=== PATIENT | female | born 1990 | race Caucasian/White ===

== ENCOUNTER → 2020-08-10 14:54 | Outpatient (CLI) | payer OTHER, SELFPAY ==
[2020-08-12 07:30] LABS: HIV Screen 4th Generation wRfx Non Reactive (Non Reactive)
[2020-08-12 09:06] LABS: HSV 1 IgG, Type Spec <0.91 index (0.00-0.90); HSV 2 IgG, Type Spec <0.91 index (0.00-0.90)
[2020-08-12 10:26] LABS: Hep A Ab, IgM Negative (Negative); Hepatitis B Core Antibody IgM Negative (Negative); Hepatitis B Surface Antigen Negative (Negative); Hepatitis C Antibody <0.1 s/co ratio (0.0-0.9)
[2020-08-12 12:33] LABS: Rapid Plasma Reagin Ab Titer Non Reactive (NonRea<1:1)
== END ==
PROVIDERS: Visit Provider Nurse Practitioner Obstetrics & Gynecology
DX: Z01.419 Encounter for gynecological examination (general) (routine) without abnormal findings (principal); Z72.51 High risk heterosexual behavior
CPT/HCPCS: 36415; 80074; 86592; 86695; 86703; 86790; G0432

== ENCOUNTER → 2022-04-24 10:34 | Outpatient (CLI) | payer OTHER, SELFPAY ==
--- NOTE | 2022-04-24 10:34 | US_ITS ---
FINAL REPORT CLINICAL HISTORY: abnormal uterine bleeding FINDINGS: Transvaginal sonographic images of the pelvis were obtained. The uterus measures 8.9 x 5.2 x 4.4 cm. The endometrium measures 13 mm, which is at the upper limit of normal. There is a questionable small subserosal uterine fibroid. The right ovary measures 4.4 cm in length and left ovary measures 3.8 cm in length. Normal blood flow seen to the ovaries. There are multiple cysts and follicles bilaterally consistent with PCOS. There is no evidence of free fluid. IMPRESSION: Questionable small subserosal uterine fibroid. Multiple cysts/follicles in both ovaries consistent with PCOS. 13 mm endometrium measures at the upper limits of normal. Reviewed, Interpreted and Dictated by Suraj Casas III, MD Transcribed by Arminda Quijano Authenticated and [facility]
== END ==
PROVIDERS: PCP Pediatrics; Visit Provider Obstetrics & Gynecology
DX: N93.8 Other specified abnormal uterine and vaginal bleeding (principal)
CPT/HCPCS: 76830

== ENCOUNTER → 2022-06-29 12:47 | Outpatient (CLI) | payer OTHER, SELFPAY ==
[2022-06-29 14:42] LABS: Basophils % 0.5 % (0.1-2.0); Eosinophils # 0.1 K/mm3 (0.0-0.4); Eosinophils % 1.4 % (0.1-12.0); Hematocrit 39.5 % (37.0-47.0); Hemoglobin 13.2 g/dL (12.2-16.2); Lymphocytes % 28.7 % (10-50); Mean Corpuscular HGB Conc 33.5 g/dL (31.8-35.4); Mean Corpuscular Hemoglobin 30.3 pg (27.0-31.2); Mean Corpuscular Volume 90.6 fl (81-99); Mean Platelet Volume 8.2 fl (7.4-10.4); Monocytes # 0.4 K/mm3 (0.1-1.0); Neutrophils # 4.5 K/mm3 (1.8-7.8); Neutrophils % 63.5 % (37.0-80.0); Platelet Count 292 K/mm3 (142-424); Red Blood Count 4.36 M/mm3 (4.20-5.40); Red Cell Distribution Width 12.9 % (11.5-17.5); White Blood Count 7.1 K/mm3 (4.8-10.8)
[2022-06-29 15:29] LABS: Alanine Aminotransferase 23 U/L (12-78); Albumin Level 4.1 g/dl (3.5-5.0); Albumin/Globulin Ratio 1.6 (1.1-1.8); Alkaline Phosphatase 53 U/L (38-126); Anion Gap 17.6 mEq/L (5-15); Aspartate Amino Transferase 25 U/L (14-36); Blood Urea Nitrogen 12 mg/dl (7-17); Calcium 8.8 mg/dl (8.4-10.2); Carbon Dioxide 26 mmol/L (22.0-30.0); Chloride 101 mmol/L (98-107); Estimated Glomerular Filt Rate 84 ml/min (>60); GFR (African American) 101 ML/MIN (>60); Globulin 2.5 g/dL (1.3-3.2); Glucose 77 mg/dl (74-100); Potassium 3.6 mmoL/L (3.5-5.1); Sodium 141 mmol/L (136-145); Total Protein,Serum 6.6 g/dl (6.3-8.2)
[2022-06-29 15:31] LABS: Bilirubin,Total < 0.1 mg/dl (0.2-1.3)
[2022-06-29 15:45] LABS: HCG,Quantitative < 2 mIU/ml (0-5.42)
== END ==
PROVIDERS: PCP Pediatrics; Visit Provider Obstetrics & Gynecology
DX: N93.9 Abnormal uterine and vaginal bleeding, unspecified (principal); Z01.812 Encounter for preprocedural laboratory examination
CPT/HCPCS: 36415; 80053; 84702; 85025

== ENCOUNTER 2022-07-05 05:58 | Day surgery (SDC) | payer OTHER, SELFPAY ==
[2022-07-03 13:09] VITALS: BMI 40.7
[2022-07-05] VITALS (10 sets, daily range): BP systolic 116–137; BP diastolic 76–97; PULSE 61–77; RESP 16–19; TEMP 36.1–43; O2SAT 94–98
--- NOTE | 2022-07-05 07:12 | P.PN_ITS ---
[facility] Disclaimer: The information contained in this section may have been updated after the patient was seen, as this information can be updated by other users. Medical History Abnormal uterine bleeding delivery delivered Fibroid, uterine Surgical History H/O tubal ligation History of arthroplasty of right shoulder Family History Other Family history of acute congestive heart failure Family history of diabetes mellitus type II Social History Smoking Status: Current every day smoker smoking status stop date: stopped 01/2022 alcohol intake: current substance use type: denies use current occupational status: employed Travel in the last 8 weeks: None household members: spouse and family housing: house [facility] Anesthesia Checklist Patient Identification Patient Identification: Arm Band and Family Structural Data Admitted From: Home Planned Operative Procedure/s: D & C. Hysteroscopy. Myosu re. Novasure. Insertion of IUD. Consent for Planned Operative Procedure(s) Verified: Yes Verified Documents: Surgical Consent and History and Physical NPO Status Verified Time NPO: 00:00 Additional verifications Patient : No Anesthesia Reactions: No Hx Blood Transfusions: No Blood Transfusion Reaction: No Cephalosporin Allergy: No Previous Colonoscopy: No Cardiovascular Assessment Peripheral Edema: No Airway Assessment C-Spine Mobility Assessed: Yes TMJ Mobility Assessed: Yes Dentition: Good Dentition Neurological Assessment Level of Consciousness: Awake, Alert, Appropriate and Follows Commands Hx Seizures: No Numbness or tingling in extremities: No Anesthesia Plan Anesthesia Risk discussed: Yes ASA Class: II Anesthesia Type: General
--- NOTE | 2022-07-05 08:21 | P.PNANES_ITS ---
[facility] Anesthesia Record Part I Anesthesia Record I Intake, IV Amount: 650 Estimated blood loss (mL): 5 Urine output (mL): 50 Blood Products used (#): none Blood Pressure: 126/77 SaO2: 94 Pulse Rate: 77 Respiratory Rate: 18 Temperature: 97.2 F Patient is:: Drowsy and Stable Stable to PACU at:: 08:18
--- NOTE | 2022-07-05 08:23 | EXP.OP.NOTE ---
Date of procedure: 07/05/22 Pre-op Diagnosis:: 1. Abnormal uterine bleeding 2. Uterine fibroid Post-op Diagnosis:: 1. Abnormal uterine bleeding 2. Uterine fibroid Procedure performed:: 1. Hysteroscopy, dilation and curettage 2. Insertion of Mirena IUD Surgeon:: Kristel Duncan DO Fire Assistant(s):: N/a RETORT PRE COOKER:: Other Anesthesia: GETA Estimated blood loss (mL): 5 Clinical Note:: Ms Mirna Espino is a 31 yo P2002 who presents to [facility] for scheduled surgery. She has history of monthly periods lasting 7 days with heavy flow. However, this month she has been bleeding for the past 4.5 weeks. Flow alternates between light and heavy. TSH drawn at an outside lab 12/2021 was 0.828, within normal limits. She has tried OCPs in the past and it made her bleeding worse. Hx of tubal ligation. She has also tried Mirena IUD in the past and did really well with it. She had IUD removed about 8 years ago. Pelvic ultrasound demonstrated uterus measuring 8.9 x 5.2 x 4.4 cm. The endometrium measures 13 mm, which is at the upper limit of normal.? There is a questionable small subserosal uterine fibroid.? Operative findings:: 1. On bimanual exam, uterus midline, anteverted, normal size and shape. No adnexal masses palpated 2. On hysteroscopic exam, bilateral tubal ostia easily visualized. Small amount of endometrial tissue present. No masses or polyps present Operative note:: Risks, benefits and alternatives were discussed with the patient. Risks include but are not limited to bleeding, infection, uterine perforation and VTE. Patient voiced understanding and agreed to proceed. She was wheeled back to the operating room and placed under MAC without difficulty. She was placed in dorsal lithotomy position and prepped and draped in the normal sterile fashion. Straight catheter was used to drain the bladder. A bimanual exam was performed. A weighted Auvard was placed in the vaginal vault. Single tooth tenaculum was placed on anterior lip of the cervix. Uterus sounded to 10. Sequential Alec dilators were used to dilate the cervical os. Hysteroscope was tested inserted through the cervix without difficulty. Endometrial cavity was evaluated. See findings above. Pictures were taken. Hysteroscope was removed. At this time, a medium size sharp curette was inserted through the cervix into the uterine cavity and endometrium was curetted with a systematic back and forth movement in a 360 degree manner. Endometrial curettings will be sent to pathology for review. Next, Mirena IUD was inserted in the uterine cavity per protocol without difficulty. Strings were trimmed approximately 2.5 cm from external cervical os. Instruments were removed from the vagina. Tenaculum site was noted to oozing. 2-0 Chromic suture was used to suture ligate the bleeding. Hemostasis was noted. Patient was awaken from anesthesia without difficulty. She was transported to recovery room in stable condition. Patient will be discharged home when awake and ambulating. She was given postop instructions as well as instructions to follow-up in the office in 2 weeks at which time pathology will be reviewed. Condition: stable Disposition: same day Specimens:: Endometrial curettings Complications:: None
--- NOTE | 2022-07-05 10:39 | P.PNANES_ITS ---
[facility] Anesthesia Record Part II Anesthesia Record Part II Discharge Time: 08:48 Destination: Surgical Day Care (OP Surgery) PACU nurse assessment reviewed?: Yes Patient Condition:: Good Anesthesia Complications:: None Swallowing reflex intact?: Yes Cyanosis?: No Blood Pressure: 124/77 Pulse Rate: 61 Temperature: 97 F Mental Status: Alert & Oriented Pain level:: 3 Nausea and/or vomitting:: None Intake, IV Amount: 0
== END 2022-07-05 09:20 | disposition home or self-care (01) ==
PROVIDERS: PCP Pediatrics; Visit Provider Obstetrics & Gynecology
PROC: (CPT 58558; principal; 2022-07-05 07:30)
DX: N84.0 Polyp of corpus uteri (principal); N93.9 Abnormal uterine and vaginal bleeding, unspecified; Z79.899 Other long term (current) drug therapy
CPT/HCPCS: 58558; 58300; J2405; S4989

== ENCOUNTER 2023-12-12 10:28 | Outpatient (CLI) | payer OTHER, SELFPAY ==
[2023-12-12 10:37] LABS: Microscopic, Urine URINE MICROSCOPIC (MICROSCOPIC)
[2023-12-12 11:04] LABS: Appearance,Urine CLEAR (Clear); Bilirubin,Urine Negative (Negative); Blood, Urine Negative (Negative); Color,Urine YELLOW (Yellow); Glucose,Urine (UA) Negative (Negative); Ketones,Urine Negative (Negative); Leukocyte Esterase,Urine Negative (Negative); Nitrate,Urine Negative (Negative); PH,Urine 7.5 (5.0-8.5); Protein,Urine Negative (Negative); Urobilinogen,Urine 0.2 EU/dl (0.2)
[2023-12-12 11:05] LABS: Basophils # 0.1 K/mm3 (0-0.2); Eosinophils # 0.1 K/mm3 (0.0-0.4); Eosinophils % 1.6 % (0.1-12.0); Hematocrit 40.3 % (37.0-47.0); Hemoglobin 13.6 g/dL (12.2-16.2); Lymphocytes # 1.9 K/mm3 (0.7-4.5); Lymphocytes % 28.9 % (10-50); Mean Corpuscular HGB Conc 33.9 g/dL (31.8-35.4); Mean Corpuscular Hemoglobin 29.1 pg (27.0-31.2); Mean Corpuscular Volume 85.9 fl (81-99); Mean Platelet Volume 7.3 fl (7.4-10.4); Monocytes # 0.5 K/mm3 (0.1-1.0); Monocytes % 7.7 % (1.7-9.3); Neutrophils % 60.7 % (37.0-80.0); Platelet Count 273 K/mm3 (142-424); Red Blood Count 4.69 M/mm3 (4.20-5.40); Red Cell Distribution Width 13.4 % (11.5-17.5); White Blood Count 6.6 K/mm3 (4.8-10.8)
[2023-12-12 11:19] LABS: D-Dimer 0.51 ug/mL (0.0-0.5)
[2023-12-12 11:31] LABS: Erythrocyte Sedimentation Rate 19 mm/hr (0-20)
[2023-12-12 12:05] LABS: Alanine Aminotransferase 78 U/L (12-78); Albumin/Globulin Ratio 1.4 (1.1-1.8); Alkaline Phosphatase 50 U/L (38-126); Anion Gap 11.9 mEq/L (5-15); Aspartate Amino Transferase 63 U/L (14-36); Bilirubin,Total 0.4 mg/dl (0.2-1.3); Blood Urea Nitrogen 9 mg/dl (7-17); Carbon Dioxide 25 mmol/L (22.0-30.0); Chloride 107 mmol/L (98-107); Chol/HDL Ratio 4.5 (1-3.5); Cholesterol 177 mg/dl (140-200); Estimated Glomerular Filt Rate 64 ml/min (>60); GFR (African American) 77 ML/MIN (>60); Globulin 2.8 g/dL (1.3-3.2); Glucose 82 mg/dl (74-100); HDL Cholesterol 39 mg/dl (40-60); Magnesium 1.7 mg/dl (1.6-2.3); Phosphorous 4.4 mg/dl (2.5-4.5); Potassium 3.9 mmoL/L (3.5-5.1); Sodium 140 mmol/L (136-145); Total Protein,Serum 6.8 g/dl (6.3-8.2); Triglycerides 195 mg/dl (30-150); VLDL Cholesterol 39 mg/dL (0-40)
[2023-12-12 12:15] LABS: C-Reactive Protein 4.4 mg/L (0-4)
[2023-12-12 12:21] LABS: 25-OH Vitamin D, Total 19.8 ng/mL (30-100)
[2023-12-12 12:23] LABS: Free T4 (Free Thyroxine) 0.89 ng/dl (0.78-2.19)
[2023-12-12 12:33] LABS: WBC,Urine Occasional #/hpf (0-3)
[2023-12-12 12:34] LABS: Bacteria,Urine Trace /lpf
[2023-12-12 12:53] LABS: HIV (1&2) Antibody Rapid NONREACTIVE (NONREACTIVE)
[2023-12-12 12:55] LABS: Vitamin B12 642 pg/mL (239-931)
[2023-12-12 13:12] LABS: Iron 77 ug/dL (37-170)
[2023-12-12 13:23] LABS: Total Iron Binding Capacity 379 ug/dL (265-497)
[2023-12-12 13:45] LABS: Thyroid Stimulating Hormone < 0.02 uIU/mL (0.465-4.68)
[2023-12-12 13:49] LABS: Ferritin 22.6 ng/ml (6.24-137)
[2023-12-12 14:05] LABS: Hemoglobin A1C 5.3 % (4.0-6.0)
[2023-12-13 05:25] LABS: HCV Ab Non Reactive (Non Reactive)
== END 2023-12-12 23:59 | disposition home or self-care (01) ==
LOC: LAB 10:31
PROVIDERS: PCP Pediatrics; Visit Provider Nurse Practitioner Family
DX: Z13.1 Encounter for screening for diabetes mellitus (principal); Z68.42 Body mass index [BMI] 45.0-49.9, adult; M79.661 Pain in right lower leg; M79.662 Pain in left lower leg; R22.43 Localized swelling, mass and lump, lower limb, bilateral; E55.9 Vitamin D deficiency, unspecified; R79.89 Other specified abnormal findings of blood chemistry; Z11.59 Encounter for screening for other viral diseases; Z13.220 Encounter for screening for lipoid disorders; Z11.4 Encounter for screening for human immunodeficiency virus [HIV]
CPT/HCPCS: 36415; 80050; 80053; 80061; 81001; 82306; 82607; 82728; 83036; 83540; 83550; 83735; 84100; 84439; 84443; 85025; 85378; 85651; 86140; 86803; 87086; 87389

== ENCOUNTER 2023-12-14 13:20 | Outpatient (CLI) | payer OTHER, SELFPAY ==
--- NOTE | 2023-12-14 13:28 | US_ITS ---
PROCEDURE INFORMATION: Exam: US Soft Tissue Head and Neck, Thyroid Exam date and time: 12/14/2023 1:32 PM Age: 33 years old Clinical indication: Abnormal findings; Abnormal thyroid lab test; Additional info: Hyperthyroidism TECHNIQUE: Imaging protocol: Real-time ultrasound scan of the neck with image documentation. Exam focused on the thyroid. COMPARISON: No relevant prior studies available. FINDINGS: Right thyroid lobe: Right lobe of the thyroid 5.1 x 1.5 x 1.8 cm Left thyroid lobe: Left lobe of the thyroid 4.6 x 1.1 x 1.8 cm Isthmus: Isthmus 4 mm Other findings: Heterogeneous thyroid parenchyma without discrete nodule.. IMPRESSION: Heterogeneous thyroid parenchyma without discrete nodule..
--- NOTE | 2023-12-14 13:29 | CA_ITS ---
FINAL REPORT CLINICAL HISTORY: pain, edema FINDINGS: Bilateral lower extremity venous duplex examination was performed with augmentation and compression. Popper flow was seen throughout the deep venous system. IMPRESSION: 1. No evidence of deep venous thrombosis. Authenticated and [facility]
--- NOTE | 2023-12-14 13:29 | US_ITS ---
FINAL REPORT CLINICAL HISTORY: linette edema and leg pain, ex smoker, obesity COMPARISON: None FINDINGS: ANKLE-BRACHIAL PRESSURE INDICES Pressure indices are as follows: RIGHT LOWER EXTREMITY: Ankle-brachial pressure index: 1.2 Comments: Normal LEFT LOWER EXTREMITY: Ankle-brachial pressure index: 1.14 Comments: Normal CONCLUSION: No evidence of significant obstructive peripheral vascular disease of the lower extremities Reviewed, Interpreted and Dictated by Suraj Casas III, MD Transcribed by Keli Layne Authenticated and [facility]
== END 2023-12-14 23:59 | disposition home or self-care (01) ==
LOC: RAD 13:22
PROVIDERS: PCP Nurse Practitioner Family; Visit Provider Nurse Practitioner Family
DX: R79.89 Other specified abnormal findings of blood chemistry (principal); R22.43 Localized swelling, mass and lump, lower limb, bilateral; M79.661 Pain in right lower leg; M79.662 Pain in left lower leg; Z68.42 Body mass index [BMI] 45.0-49.9, adult
CPT/HCPCS: 76536; 93923; 93970

== ENCOUNTER 2023-12-24 06:59 | Outpatient (CLI) | payer OTHER, SELFPAY ==
--- NOTE | 2023-12-24 07:03 | CT_ITS ---
FINAL REPORT TECHNIQUE: Axial images through the abdomen and pelvis were performed without contrast.This study was performed with techniques to keep radiation doses as low as reasonably achievable, (ALARA). Individualized dose reduction techniques using automated exposure control or adjustment of mA and/or kV according to the patient's size were employed. CLINICAL HISTORY: obesity, ble pain and edema FINDINGS: ABDOMEN: The lung bases are clear. The heart size is normal. Limited images of the liver are unremarkable. The spleen is normal. No adrenal mass is identified. The aorta is normal in caliber. There is no significant free fluid or adenopathy. There is no nephrolithiasis. There is no hydronephrosis. PELVIS: The appendix is normal. An IUD is in place. The uterus has a lobular contour, likely uterine fibroid. There is a small left ovarian cyst. The urinary bladder is unremarkable. There is no significant free fluid or adenopathy. IMPRESSION: Likely fibroid in the uterus. Small left ovarian cyst. Reviewed, Interpreted and Dictated by Suraj Casas III, MD Transcribed by Ariana Ortiz Authenticated and [facility]
--- NOTE | 2023-12-24 07:03 | XR_ITS ---
FINAL REPORT CLINICAL HISTORY: left foot pain and swelling COMPARISON: None FINDINGS: LEFT FOOT: Three views of the left foot were obtained. There is no acute fracture or dislocation. The joint spaces are intact. There is no soft tissue abnormality. There are small calcaneal spurs. IMPRESSION: No acute bony abnormality. Reviewed, Interpreted and Dictated by Suraj Casas III, MD Transcribed by Liza Sales Authenticated and [facility]
--- NOTE | 2023-12-24 07:03 | XR_ITS ---
FINAL REPORT CLINICAL HISTORY: right lower leg pain and swelling COMPARISON: None FINDINGS: LEFT TIBIA FIBULA: 2 views were obtained. There is no acute fracture or dislocation. The joint spaces are intact. There is no soft tissue abnormality. IMPRESSION: No acute fracture Reviewed, Interpreted and Dictated by Suraj Casas III, MD Transcribed by Liza Sales Authenticated and . [facility]
--- NOTE | 2023-12-24 07:03 | CA_ITS ---
APPROVED REPORT EXAM: Comprehensive 2D, Doppler, and color-flow Echocardiogram Lithographic General Worker: Barbara León CRT Ht: 5 ft 5 in Wt: 273lbs BSA: 2.26 BP: 127/70 mmHg Indications: Peripheral Edema, smoker 2D Dimensions LA Volume 44.90 mL LA Volume Index 19.40 mL/m2 (M/F) 16-34 M-Mode Dimensions RVDd 2.40 cm (0.9-2.6) LA Diam 3.65 cm (1.9-4.0) LVDd 4.55 cm (3.5-5.7) LVDs 2.92 cm (3.5-5.7) IVSd 1.11 cm (0.6-1.1) PWd 0.79 cm (0.6-1.1) EF (Teich) 65.40% FS 35.80% EDV (Teich) 94.90 mL TAPSE 2.09 (<1.7) ESV (Teich) 32.80 mL LV Diastology E Decel Time 180 (160-240 msec) E/A Ratio 1.10 MED A' 9.20 cm/s LAT A' 7.20 cm/s Aortic Valve AO Peak GR. 6.20 mmHg Mitral Valve MV A Velocity 72.0 (40-130 cm/s) E/A Ratio 1.10 Pulmonary Valve PV Peak Velocity 125.0 (50-150 cm/s) Tricuspid Valve TR P. Velocity 181.00 cm/s RAP Estimate 10.00 mmHg RVSP 23.10 mmHg Left Ventricle The left ventricle is normal size. The left ventricular systolic function is normal. The left ventricular ejection fraction is within the normal range. There is normal left ventricular wall thickness. There is normal LV segmental wall motion. The left ventricular diastolic function is normal. LVEF is 55%. Right Ventricle The right ventricle is normal size. The right ventricular systolic function is normal. Atria The left atrium size is normal. The right atrium size is normal. There is no Doppler evidence of interatrial shunt. Aortic Valve The aortic valve opens well. There is no aortic valvular stenosis. No aortic regurgitation is present. Mitral Valve The mitral valve is normal in structure. No evidence of mitral valve stenosis. There is no mitral valve regurgitation noted. Tricuspid Valve The tricuspid valve leaflets are thin and pliable. Trace tricuspid regurgitation. There is insufficient TR jet to estimate RVSP. Pulmonic Valve The pulmonary valve is normal in structure. Trace pulmonic regurgitation. Great Vessels The aortic root is normal in size. The ascending aorta is normal in size. IVC is normal in size and collapses >50% with inspiration. Pericardium There is no pericardial effusion. Other Information Study Quality: Fair Conclusion Normal biventricular systolic function. No significant valvular stenosis or regurgitation. Electronically signed by : Hortencia Mcbride MD 12/24/2023 13:03:16
--- NOTE | 2023-12-24 07:03 | XR_ITS ---
FINAL REPORT CLINICAL HISTORY: left lower leg pain and swelling COMPARISON: None FINDINGS: LEFT TIBIA FIBULA: 2 views were obtained. There is no acute fracture or dislocation. The joint spaces are intact. There is no soft tissue abnormality. IMPRESSION: No acute fracture Reviewed, Interpreted and Dictated by Suraj Casas III, MD Transcribed by Liza Sales Authenticated and . [facility]
--- NOTE | 2023-12-24 07:03 | XR_ITS ---
FINAL REPORT CLINICAL HISTORY: right foot pain COMPARISON: None FINDINGS: RIGHT FOOT: Three views of the right foot were obtained. There is no acute fracture or dislocation. The joint spaces are intact. There is no soft tissue abnormality. There is a small posterior calcaneal spur. IMPRESSION: No acute bony abnormality. Reviewed, Interpreted and Dictated by Suraj Casas III, MD Transcribed by Liza Sales Authenticated and [facility]
== END 2023-12-24 23:59 | disposition home or self-care (01) ==
LOC: RAD 06:59
PROVIDERS: PCP Nurse Practitioner Family; Visit Provider Nurse Practitioner Family
DX: R22.43 Localized swelling, mass and lump, lower limb, bilateral (principal); M79.661 Pain in right lower leg; M79.662 Pain in left lower leg; Z68.42 Body mass index [BMI] 45.0-49.9, adult
CPT/HCPCS: 73590; 73630; 74176; 93306

== ENCOUNTER 2024-01-21 14:50 | Outpatient (CLI) | payer OTHER, SELFPAY ==
[2024-01-21 16:29] LABS: Intact Parathyroid Hormone 45.4 pg/mL (7.5-53.5)
[2024-01-22 13:11] LABS: FSH 4.7 mIU/mL (.); Prolactin 9.5 ng/mL (4.8-33.4)
[2024-01-22 14:13] LABS: Adrenocorticotropic Hormone 14.9 pg/mL (7.2-63.3)
[2024-01-24 07:09] LABS: IGF-BP3 4714 ug/L (2573-5804)
== END 2024-01-21 23:59 | disposition home or self-care (01) ==
LOC: LAB 14:51
PROVIDERS: PCP Nurse Practitioner Family; Visit Provider Otolaryngology
DX: R79.89 Other specified abnormal findings of blood chemistry (principal)
CPT/HCPCS: 36415; 82024; 83001; 83520; 83970; 84146

== ENCOUNTER 2024-01-22 08:38 | Outpatient (CLI) | payer OTHER, SELFPAY ==
--- NOTE | 2024-01-22 08:39 | MR_ITS ---
FINAL REPORT CLINICAL HISTORY: low TSH levels FINDINGS: Multiplanar MR imaging of the brain was performed without and with contrast. There is no evidence of intracranial hemorrhage or mass. No abnormal extra-axial fluid collection is seen. The ventricular size is within normal limits. There is no evidence of shift of the midline structures. The posterior fossa and brainstem have an unremarkable appearance. Note is made of a partially empty sella, as a variant. No area of abnormal restricted diffusion is identified. No abnormal contrast enhancement is seen. Normal major vessel vascular flow voids are noted. IMPRESSION: No acute intracranial abnormality identified. Reviewed, Interpreted and Dictated by Suraj Casas III, MD Transcribed by Latasha Purcell Authenticated and [facility]
[2024-01-22] MEDS: GADOTERIDOL INJ 20ML SYRINGE 20 ML IV (10:03)
[2024-01-22] MEDS: GADOTERIDOL INJ 10ML SYRINGE 5 ML IV (10:03)
[2024-01-22] MEDS: SODIUM CHLORIDE 0.9% 10ML SYR (RAD ONLY) 10 ML IV (10:03)
== END 2024-01-22 23:59 | disposition home or self-care (01) ==
LOC: RAD 08:39
PROVIDERS: PCP Nurse Practitioner Family; Visit Provider Otolaryngology
DX: R79.89 Other specified abnormal findings of blood chemistry (principal); E23.0 Hypopituitarism; E03.9 Hypothyroidism, unspecified
CPT/HCPCS: 70553; A9576

== ENCOUNTER 2024-03-21 12:44 | Outpatient (CLI) | payer OTHER, SELFPAY ==
--- NOTE | 2024-03-21 12:45 | MR_ITS ---
FINAL REPORT CLINICAL HISTORY: Peroneal Tendonitis HEEL PAIN , ENTIRE ANKLE PAIN AND SORENESS IN TIB FIB FINDINGS: Multiplanar MR imaging of the left lower leg was obtained without contrast. The marrow signal pattern is normal. The musculature has a normal MR appearance without evidence of tear or strain. No cystic or soft tissue mass is identified. There is mild pretibial subcutaneous edema which can be a typical finding. No evidence of hemorrhage is seen. IMPRESSION: No findings to account for patient's symptoms. Unremarkable exam. Reviewed, Interpreted and Dictated by Arturo Good MD Transcribed by Gail Lizama Authenticated and [facility]
--- NOTE | 2024-03-21 12:45 | MR_ITS ---
FINAL REPORT TECHNIQUE: Multiplanar MRI without gadolinium enhancement CLINICAL HISTORY: left Ankle Pain with left lower leg soreness FINDINGS: Articular cartilage: No focal osteochondral defect Marrow signal: Normal pattern Joint fluid: Small Tendons: No evidence of tear. Specifically, the peroneus longus and brevis tendons have a normal MRI appearance. Ligaments: Major ligaments unremarkable Plantar fascia: No evidence of tear or fasciitis. IMPRESSION: Unremarkable exam. Reviewed, Interpreted and Dictated by Arturo Good MD Transcribed by Gail Lizama Authenticated and . [facility]
== END 2024-03-21 23:59 | disposition home or self-care (01) ==
LOC: RAD 12:45
PROVIDERS: PCP Nurse Practitioner Family; Visit Provider Podiatrist
DX: M76.72 Peroneal tendinitis, left leg (principal); S99.912S Unspecified injury of left ankle, sequela; S99.922S Unspecified injury of left foot, sequela
CPT/HCPCS: 73718; 73721